=== PATIENT | male | born 1990 | race Caucasian/White ===

== ENCOUNTER 2019-04-26 23:36 | Emergency (ER) | payer OTHER ==
[~2019-04-26] VITALS: Ht 185.4 cm; Wt 131.1 kg
[2019-04-26 23:48] VITALS: Ht 185.4 cm; Wt 131.1 kg
[2019-04-27 01:19] LABS: CALCIUM 8.5 mg/dL (8.5-10.1); CARBON DIOXIDE 29.9 mmol/L (21-32); CHLORIDE SERUM 104 mmol/L (98-107); CREATININE SERUM 0.7 mg/dL (0.7-1.3); GFR1 > 60 mL/min; GLUCOSE SERUM 101 mg/dL (74-106); POTASSIUM SERUM 3.6 mmol/L (3.5-5.1); SODIUM SERUM 141 mmol/L (136-145)
[2019-04-27 01:24] LABS: ALBUMIN 4.1 g/dL (3.4-5.0); ALKALINE PHOSPHATASE 86 U/L (46-116); ALT/SGPT 62 U/L (16-63); AST/SGOT 31 U/L (15-37); BILIRUBIN TOTAL 1.47 mg/dL (0.20-1.00); LIPASE 779 IU/L (73-393)
[2019-04-27 01:26] LABS: TOTAL PROTEIN, SERUM 8.7 g/dL (6.4-8.2)
[2019-04-27 01:27] LABS: BASOPHIL % 0.4 % (0-2); PLATELET COUNT 305 x10^3mcL (130-400); RED CELL DISTRIBUTION WIDTH 11.9 % (11.5-14.5)
[2019-04-27 02:31] VITALS: BP 130/79
== END 2019-04-27 02:31 | disposition home or self-care (01) ==
LOC: ED 23:36
PROVIDERS: Emergency Medicine
DX: R10.11 Right upper quadrant pain (principal); Z91.013 Allergy to seafood
CPT/HCPCS: 36415